=== PATIENT | female | born 1950 | race Caucasian/White ===

== ENCOUNTER 2021-05-22 20:21 | Emergency (ER) | payer MEDICARE, OTHER ==
[~2021-05-22] VITALS: Ht 157.5 cm; Wt 53.6 kg
[2021-05-22 21:15] VITALS: BP 126/67
== END 2021-05-22 21:20 | disposition home or self-care (01) ==
LOC: M ED 20:21
DX: K94.20 Gastrostomy complication, unspecified (principal); Z85.21 Personal history of malignant neoplasm of larynx